=== PATIENT | female | born 1960 | race Caucasian/White ===

== ENCOUNTER → 2016-05-28 | Outpatient (CLI) | payer BC ==
--- NOTE | 2016-06-01 12:49 | MM ---
Reason for exam: screening (asymptomatic). Last mammogram was performed 1 year ago. History: Patient is postmenopausal and had first child at age 32. Family history of breast cancer in aunt at age 60. 2 benign cyst aspirations of the left breast, 2004. Physical Findings: A clinical breast exam by your physician is recommended on an annual basis and results should be correlated with mammographic findings. MG 3D Screening Mammo W/Cad Bilateral CC and MLO view(s) were taken. Prior study comparison: May 17, 2015, left breast MG 3d work up w/cad LT. May 03, 2015, bilateral MG screening mammo w CAD. The breast tissue is heterogeneously dense. This may lower the sensitivity of mammography. No significant changes when compared with prior studies. ASSESSMENT: Benign, BI-RAD 2 RECOMMENDATION: Routine screening mammogram of both breasts in 1 year.
== END | disposition home or self-care (01) ==
LOC: RADMAMWWP 16:37
PROVIDERS: ATTEND Obstetrics & Gynecology
DX: Z12.31 Encounter for screening mammogram for malignant neoplasm of breast (principal)
CPT/HCPCS: 77063; G0202

== ENCOUNTER → 2017-01-08 | Outpatient (CLI) | payer OTHER ==
[2017-01-08 11:00] LABS: Basophils % (A) 1 %; CH 28.7; CHCM 31.6; Eosinophils % (A) 1 %; HCT 44.6 % (34.0-46.0); HDW 2.16; HGB 13.9 gm/dL (11.4-16.0); Luc # (Auto) 0.07; Luc % (Auto) 2; Lymphocytes # (A) 1.2 k/uL (1.0-4.8); Lymphocytes % (A) 26 %; MCH 28.4 pg (25.0-35.0); MCHC 31.1 g/dL (31.0-37.0); MCV 91.1 fL (80.0-100.0); Mean Platelet Volume 7.9; Monocytes # (A) 0.2 k/uL (0-1.0); Monocytes % (A) 5 %; Neutrophils % (A) 66 %; RBC 4.89 m/uL (3.80-5.40); RDW 12.7 % (11.5-15.5); WBC 4.6 k/uL (3.8-10.6); WBC (Perox) 4.45
[2017-01-08 11:07] LABS: ALT 41 U/L (9-52); AST 26 U/L (14-36); Alkaline Phosphatase 59 U/L (38-126); Anion Gap 6 mmol/L; Blood Urea Nitrogen 15 mg/dL (7-17); Calcium 9.9 mg/dL (8.4-10.2); Carbon Dioxide 28 mmol/L (22-30); Chloride 106 mmol/L (98-107); Cholesterol 205 mg/dL (<200); Glucose 92 mg/dL (74-99); HDL Cholesterol 70 mg/dL (40-60); Non-African American GFR(MDRD) >60 (>60 ml/min/1.73 sqM); Potassium 4.8 mmol/L (3.5-5.1); Sodium 140 mmol/L (137-145); Total Bilirubin 0.5 mg/dL (0.2-1.3); Total Protein 7.4 g/dL (6.3-8.2)
[2017-01-12 14:05] LABS: Almond IgE <0.35 kU/L (<0.35); Almond IgE Class CLASS 0
[2017-01-12 14:06] LABS: Beef IgE <0.35 kU/L (<0.35); Beef IgE Class CLASS 0; Pork IgE Class CLASS 0
[2017-01-12 14:07] LABS: Gluten IgE Class CLASS 0; Yeast Bakers/Brew IgE <0.35 kU/L (<0.35); Yeast Bakers/Brew IgE Class CLASS 0
[2017-01-12 14:08] LABS: Chicken IgE Class CLASS 0
[2017-01-12 14:09] LABS: Cow's Milk IgE Class CLASS 0; Egg White IgE <0.35 kU/L (<0.35); Latex IgE Class CLASS 0; Peanut IgE <0.35 kU/L (<0.35); Potato IgE <0.35 kU/L (<0.35); Potato IgE Class CLASS 0; Soybean IgE <0.35 kU/L (<0.35)
[2017-01-12 14:10] LABS: Avocado Class CLASS 0; Banana IgE Class CLASS 0; Coffee IgE <0.35 kU/L (<0.35); Coffee IgE Class CLASS 0; Hazelnut IgE <0.35 kU/L (<0.35); Hazelnut IgE Class CLASS 0; Kiwi IgE <0.35 kU/L (<0.35); Kiwi IgE Class CLASS 0
[2017-01-14 07:23] LABS: Mis test requested (Blood) Whitefish IgE
== END | disposition home or self-care (01) ==
LOC: LABWHC1 09:57
PROVIDERS: ATTEND Otolaryngology
DX: Z00.00 Encounter for general adult medical examination without abnormal findings (principal); L50.0 Allergic urticaria; R94.7 Abnormal results of other endocrine function studies; Z13.220 Encounter for screening for lipoid disorders
CPT/HCPCS: 36415; 80053; 80061; 84439; 84443; 85025; 86003

== ENCOUNTER → 2017-08-17 | Outpatient (CLI) | payer OTHER ==
[2017-08-17 14:59] VITALS: BP 135/75; PULSE 65; RESP 18; TEMP 98.6; BMI 21.1
--- NOTE | 2017-08-17 15:44 | P.HPOB ---
History of Present Illness H&P Date: 08/17/17 Chief Complaint: The patient is here for her routine gynecologic exam and mammogram. This is a 56-year-old with an LMP of 2011. The patient is without gynecologic complaints. Hot flashes have resolved. She denies any postmenopausal bleeding. Review of Systems Weight has been stable. She denies respiratory or cardiac problems. G.I.: she has been having frequent heartburn. Dr. Ash had recommended omeprazole as directed and she is taking this PRN. She continues to have frequent heartburn and can sometimes be aggravated by something as little as a glass of water. Past Medical History Past Medical History: Mitral Valve Prolapse (MVP) Additional Past Medical History / Comment(s): hx migraines, sm hiatal hernia, osteopenia. 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 She does have a history of small uterine fibroids. History of Any Multi-Drug Resistant Organisms: None Reported Past Surgical History: Section (x2) Additional Past Surgical History / Comment(s): Colonoscopy at age [age] and 2016. Past Anesthesia/Blood Transfusion Reactions: Motion Sickness Past Psychological History: No Psychological Hx Reported Smoking Status: Never smoker Past Alcohol Use History: None Reported Past Drug Use History: None Reported Additional History: She has been since 1980 and works at [employer]. - Past Family History Mother Family Medical History: Cancer (Multiple myeloma) Additional Family Medical History / Comment(s): Maternal aunt had breast cancer. Father Family Medical History: Myocardial Infarction ([place]) Medications and Allergies Home Medications Medication Instructions Recorded Confirmed Type Ibuprofen [Advil] 200 mg PO DIRECTED PRN 08/07/15 08/17/17 History Multivitamins, Thera [Multivitamin] 1 tab PO DAILY 08/07/15 08/17/17 History Omeprazole [PriLOSEC] 20 mg PO AC-BID 08/17/17 08/17/17 History Allergies Allergy/AdvReac Type Severity Reaction Status Date / Time No Known Allergies Allergy Verified 08/07/15 08:55 Exam - Vital Signs Vital signs: Vital Signs Temp Pulse Resp BP 08/17/17 14:53 98.6 F 65 18 135/75 Intake and Output 08/17/17 08/17/17 08/17/17 06:59 14:59 22:59 Other: Weight 61.235 kg Height 5'7", BMI 21.1. This is a well-developed well-nourished white female who is alert and oriented times 3 in no acute distress. HEENT: Within normal limits. NECK: Supple without mass or thyromegaly. CHEST AND LUNGS: Clear to auscultation. HEART: Regular rate and rhythm. BREASTS: Are without mass or discharge. AXILLARY EXAM: Negative for adenopathy. BACK: Negative for CVA tenderness. ABDOMEN: Soft, nontender, without palpable masses. PELVIC EXAM: Normal external genitalia with mild atrophy. Cervix and vagina appear normal with mild atrophy. There is no unusual discharge. There is no evidence of prolapse. The uterus is midposition, nongravid size and nontender. There are no palpable adnexal masses or tenderness. RECTAL EXAM: rectovaginal exam is negative for mass or tenderness and is negative for occult blood. EXTREMITIES: Nontender. IMPRESSION: 1. 56-year-old menopausal female with normal gynecologic exam. 2. History of osteopenia. 3. Frequent heartburn PLAN: 1. Pap smear was deferred since she had a normal one less than 2 years ago. 2. Self breast awareness was discussed. 3. Screening mammogram will be done today. 4. I've recommended that she use omeprazole as directed daily for 2 weeks instead of PRN. She also should avoid the types of foods that seem to make her heartburn worse. If, after 2 weeks she continues to have heartburn, I recommended that she follow up with her G.I. doctor, Dr. Gil for possible upper endoscopy. 5. osteoporosis prevention was discussed. 6. She will return in one year.
--- NOTE | 2017-08-18 14:53 | BD ---
EXAMINATION TYPE: Axial Bone Density DATE OF EXAM: 08/17/2017 COMPARISON: NONE CLINICAL HISTORY: Height: 5 FT 7 IN Weight: 135 FRAX RISK QUESTIONS: RISK FACTORS HISTORY OF: Family History of Osteoporosis: YES Active: YES Postmenopausal woman: AGE 50 MEDICATIONS: Additional Medications: OMEPRAZOLE NEEDED Additional History: EXAM MEASUREMENTS: Bone mineral densitometry was performed using the Linebacker System. Bone mineral density as measured about the Lumbar spine is: ----- L1-L4(G/cm2): 1.024 T Score Values are as follows: ----- L2: -1.7 ----- L3: -1.1 ----- L4: -0.6 ----- L1-L4: -1.3 Bone mineral density has: DECREASED -0.4 % since study of: 2015 Bone mineral density about the R hip (g/cm2): 0.765 Bone mineral density about the L hip (g/cm2): 0.774 T Score values are as follows: -----R Neck: -2.0 -----L Neck: -1.9 -----R Total: -1.0 -----L Total: -1.3 Bone mineral density has: DECREASED -2.5 % since study of: 2015 IMPRESSION: Osteopenia (T Score between -2.5 and -1). There is slightly increased risk of fracture and the patient may be considered for treatment. Re-Screen 2-5 years. NOTE: T-SCORE=SD OF THE YOUNG ADULT MEAN.
--- NOTE | 2017-08-19 10:52 | MM ---
Reason for exam: screening (asymptomatic). Last mammogram was performed 1 year and 3 months ago. History: Patient is postmenopausal and had first child at age 32. Family history of breast cancer in aunt at age 60. 2 benign cyst aspirations of the left breast, 2004. Physical Findings: A clinical breast exam by your physician is recommended on an annual basis and results should be correlated with mammographic findings. MG 3D Screening Mammo W/Cad Bilateral CC and MLO view(s) were taken. Prior study comparison: May 28, 2016, bilateral MG 3d screening mammo w/cad. May 17, 2015, left breast MG 3d work up w/cad LT. The breast tissue is heterogeneously dense. This may lower the sensitivity of mammography. No significant changes when compared with prior studies. ASSESSMENT: Negative, BI-RAD 1 RECOMMENDATION: Routine screening mammogram of both breasts in 1 year.
== END | disposition home or self-care (01) ==
LOC: WWCWWP 14:45
PROVIDERS: ATTEND Obstetrics & Gynecology
DX: Z12.31 Encounter for screening mammogram for malignant neoplasm of breast (principal); M85.80 Other specified disorders of bone density and structure, unspecified site; Z78.0 Asymptomatic menopausal state
CPT/HCPCS: 77063; 77067; 77080

== ENCOUNTER → 2018-11-15 | Outpatient (CLI) | payer BC ==
[2018-11-15 15:50] VITALS: BP 130/76; PULSE 59; RESP 16; TEMP 98.5; BMI 20.9
--- NOTE | 2018-11-15 16:57 | P.HPOB ---
History of Present Illness H&P Date: 11/15/18 Chief Complaint: The patient is here for her routine gynecologic exam and ma mmogram. This is a 58-year-old with an LMP of 2011. The patient states he has had slight breast tenderness on both sides with the tenderness being slightly greater on the right side. She states she has been drinking more coffee than in the past and now is up to about 4 to 6 cups per day. She is otherwise without complaints and denies any postmenopausal bleeding. Review of Systems The patient's weight has been stable over the last year. She denies respiratory, cardiac, or G.I. problems. Past Medical History Past Medical History: Mitral Valve Prolapse (MVP) Additional Past Medical History / Comment(s): hx migraines, sm hiatal hernia, osteopenia. 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 She does have a history of small uterine fibroids. History of Any Multi-Drug Resistant Organisms: None Reported Past Surgical History: Section Additional Past Surgical History / Comment(s): x2. Colonoscopy at age [age] and 2016. Past Anesthesia/Blood Transfusion Reactions: Motion Sickness Past Psychological History: No Psychological Hx Reported Smoking Status: Never smoker Past Alcohol Use History: None Reported Past Drug Use History: None Reported Additional History: She has been since 1980 and works at [employer] at [employer]. She is planning to retire at age 60. - Past Family History Mother Family Medical History: Cancer Additional Family Medical History / Comment(s): Multiple myeloma. Maternal aunt had breast cancer. Father Family Medical History: Myocardial Infarction ([place]) Medications and Allergies Home Medications Medication Instructions Recorded Confirmed Type Ibuprofen [Advil] 200 mg PO DIRECTED PRN 08/07/15 11/15/18 History Multivitamins, Thera [Multivitamin] 1 tab PO DAILY 08/07/15 11/15/18 History Omeprazole [PriLOSEC] 20 mg PO DIRECTED PRN 08/17/17 11/15/18 History Calcium Carb/Vitamin D3/Vit K1 1 each PO DAILY 11/15/18 11/15/18 History [Citracal Soft Chew] Fish Oil/Dha/Epa [Fish Oil 1,200 1 each PO DAILY 11/15/18 11/15/18 History mg Fish Oil] Allergies Allergy/AdvReac Type Severity Reaction Status Date / Time No Known Allergies Allergy Verified 11/15/18 15:35 Exam Vital Signs Temp Pulse Resp BP Pulse Ox 11/15/18 15:31 98.5 F 59 L 16 130/76 94 L Height 5'7", weight 134 pounds, BMI 21.0. This is a well-developed well-nourished white female who is alert and oriented times 3 in no acute distress. HEENT: Within normal limits. NECK: Supple without mass or thyromegaly. CHEST AND LUNGS: Clear to auscultation. HEART: Regular rate and rhythm. BREASTS: Are without mass or discharge. AXILLARY EXAM: Negative for adenopathy. BACK: Negative for CVA tenderness. ABDOMEN: Soft, nontender, without palpable masses. PELVIC EXAM: Normal external genitalia with mild atrophy. Cervix and vagina appear normal with mild atrophy. There is no unusual discharge. There is no evidence of prolapse. The uterus is midposition, nongravid size and nontender. There are no palpable adnexal masses or tenderness. RECTAL EXAM: rectovaginal exam is negative for mass or tenderness and is negative for occult blood. EXTREMITIES: Nontender. IMPRESSION: 1. 58-year-old menopausal female with normal gynecologic exam. 2. History of osteopenia. 3. Recent breast tenderness without any significant physical findings at this time. PLAN: 1. Pap smear was performed. 2. Self breast awareness was discussed with the patient. 3. Screening mammogram was done today. 4. Osteoporosis prevention was discussed. I have stressed the importance of adequate calcium, vitamin D and regular exercise. Recommended amounts of david cium and vitamin D were also discussed. We will plan on repeating the bone density test in one year. 5. I've recommended that she tried to gradually cut down on caffeine intake to see if this helps with her breast tenderness. 6. She was advised to return in one year for her annual well woman exam.
--- NOTE | 2018-11-16 12:17 | MM ---
Reason for exam: screening (asymptomatic). Last mammogram was performed 1 year and 3 months ago. History: Patient is postmenopausal and had first child at age 32. Family history of breast cancer in aunt at age 60. 2 benign cyst aspirations of the left breast, 2004. Physical Findings: A clinical breast exam by your physician is recommended on an annual basis and results should be correlated with mammographic findings. MG 3D Screening Mammo W/Cad Bilateral CC and MLO view(s) were taken. Prior study comparison: August 17, 2017, bilateral MG 3d screening mammo w/cad. May 28, 2016, bilateral MG 3d screening mammo w/cad. The breast tissue is heterogeneously dense. This may lower the sensitivity of mammography. No significant changes when compared with prior studies. ASSESSMENT: Benign, BI-RAD 2 RECOMMENDATION: Routine screening mammogram of both breasts in 1 year.
== END | disposition home or self-care (01) ==
LOC: WWCWWP 15:24
PROVIDERS: ATTEND Obstetrics & Gynecology
DX: Z12.31 Encounter for screening mammogram for malignant neoplasm of breast (principal)
CPT/HCPCS: 77063; 77067

== ENCOUNTER → 2020-02-13 | Outpatient (CLI) | payer BC ==
[2020-02-13 14:44] VITALS: BP 115/74; PULSE 68; RESP 18; TEMP 97.9
--- NOTE | 2020-02-13 16:34 | P.HPOB ---
History of Present Illness H&P Date: 02/13/20 Chief Complaint: The patient is here for her routine gynecologic exam and ma mmogram. This is a 59-year-old 012 with an LMP of 2011. The patient is without gynecologic complaints. Review of Systems The patient's weight has been stable over the last year. She denies respiratory, cardiac, or G.I. problems. Past Medical History Past Medical History: Mitral Valve Prolapse (MVP) Additional Past Medical History / Comment(s): hx migraines, sm hiatal hernia, osteopenia. 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 She does have a history of small uterine fibroids. History of Any Multi-Drug Resistant Organisms: None Reported Past Surgical History: Section Additional Past Surgical History / Comment(s): x2. Colonoscopy at age [age] and 2016. Past Anesthesia/Blood Transfusion Reactions: Motion Sickness Past Psychological History: No Psychological Hx Reported Smoking Status: Never smoker Past Alcohol Use History: None Reported Past Drug Use History: None Reported Additional History: She has been since 1980 and works at [employer]. - Past Family History Mother Family Medical History: Cancer Additional Family Medical History / Comment(s): Multiple myeloma. Maternal aunt had breast cancer. Father Family Medical History: Myocardial Infarction ([place]) Medications and Allergies Home Medications Medication Instructions Recorded Confirmed Type Ibuprofen [Advil] 200 mg PO DIRECTED PRN 08/07/15 02/13/20 History Multivitamins, Thera [Multivitamin] 1 tab PO DAILY 08/07/15 02/13/20 History Fish Oil/Dha/Epa [Fish Oil 1,200 1 each PO DAILY 11/15/18 02/13/20 History mg Fish Oil] Allergies Allergy/AdvReac Type Severity Reaction Status Date / Time No Known Allergies Allergy Verified 11/15/18 15:35 Exam Vital Signs Temp Pulse Resp BP Pulse Ox 02/13/20 14:37 97.9 F 68 18 115/74 98 Intake and Output 02/13/20 02/13/20 02/13/20 06:59 14:59 22:59 Other: Weight 61.689 kg Height 5 feet 6-1/2 inches, weight 136 pounds, BMI 21.6. This is a well-developed well-nourished white female who is alert and oriented times 3 in no acute distress. HEENT: Within normal limits. NECK: Supple without mass or thyromegaly. CHEST AND LUNGS: Clear to auscultation. HEART: Regular rate and rhythm. BREASTS: Are without mass or discharge. AXILLARY EXAM: Negative for adenopathy. BACK: Negative for CVA tenderness. ABDOMEN: Soft, nontender, without palpable masses. PELVIC EXAM: Normal external genitalia with mild atrophy. Cervix and vagina appear normal with mild atrophy. There is no unusual discharge. There is no evidence of prolapse. The uterus is midposition, nongravid size and nontender. There are no palpable adnexal masses or tenderness. RECTAL EXAM: Rectovaginal exam is negative for mass or tenderness and is negative for occult blood. EXTREMITIES: Nontender. IMPRESSION: 1. 59-year-old menopausal female with normal gynecologic exam. 2. History of osteopenia. PLAN: 1. Pap smear was deferred since she had a normal one on 11/15/2018. 2. Self breast awareness was discussed with the patient. 3. Screening mammogram will be done today. 4. Osteoporosis prevention was discussed. I have stressed the importance of adequate calcium, vitamin D and regular exercise. Recommended amounts of calcium and vitamin D were also discussed. I have recommended doing another bone density test. The order slip was given to the patient for this. 5. She was advised to return in one year for her annual well woman exam.
--- NOTE | 2020-02-14 11:52 | MM ---
Reason for exam: screening (asymptomatic). Last mammogram was performed 1 year and 3 months ago. History: Patient is postmenopausal and had first child at age 32. Family history of breast cancer in aunt at age 60. 2 benign cyst aspirations of the left breast, 2004. Physical Findings: A clinical breast exam by your physician is recommended on an annual basis and results should be correlated with mammographic findings. MG 3D Screening Mammo W/Cad Bilateral CC and MLO view(s) were taken. Prior study comparison: November 15, 2018, bilateral MG 3d screening mammo w/cad. August 17, 2017, bilateral MG 3d screening mammo w/cad. The breast tissue is heterogeneously dense. This may lower the sensitivity of mammography. There is no discrete abnormality. No significant changes when compared with prior studies. ASSESSMENT: Negative, BI-RAD 1 RECOMMENDATION: Routine screening mammogram of both breasts in 1 year.
== END | disposition home or self-care (01) ==
LOC: WWCWWP 14:13
PROVIDERS: ATTEND Obstetrics & Gynecology
DX: Z12.31 Encounter for screening mammogram for malignant neoplasm of breast (principal)
CPT/HCPCS: 77063; 77067

== ENCOUNTER → 2021-02-19 | Outpatient (CLI) | payer BC ==
[2021-02-19 09:47] VITALS: BP 122/64; PULSE 68; RESP 16; TEMP 98.1
--- NOTE | 2021-02-19 10:48 | P.HPOB ---
History of Present Illness H&P Date: 02/19/21 Chief Complaint: The patient is here for her routine gynecologic exam. This is a 60-year-old 012 with an LMP of 2011. The patient is without gynecologic complaints and denies any postmenopausal bleeding. Review of Systems The patient has lost 5 pounds over the last year. She denies respiratory, cardiac, or G.I. problems. She has noticed a oral cold sore which she gets infrequently. She is requesting a prescription for Denavir cream. Past Medical History Past Medical History: Mitral Valve Prolapse (MVP) Additional Past Medical History / Comment(s): hx migraines, sm hiatal hernia, osteopenia. 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 She does have a history of small uterine fibroids. History of Any Multi-Drug Resistant Organisms: None Reported Past Surgical History: Section Additional Past Surgical History / Comment(s): x2. Colonoscopy at age [age] and 2016. Past Anesthesia/Blood Transfusion Reactions: Motion Sickness Past Psychological History: No Psychological Hx Reported Smoking Status: Never smoker Past Alcohol Use History: None Reported Past Drug Use History: None Reported Additional History: She has been since 1980 and works at [employer]. - Past Family History Mother Family Medical History: Cancer Additional Family Medical History / Comment(s): Multiple myeloma. Maternal aunt had breast cancer. Father Family Medical History: Myocardial Infarction ([place]) Medications and Allergies Home Medications Medication Instructions Recorded Confirmed Type Ibuprofen [Advil] 200 mg PO DIRECTED PRN 08/07/15 02/19/21 History Multivitamins, Thera [Multivitamin] 1 tab PO DAILY 08/07/15 02/19/21 History Fish Oil/Dha/Epa [Fish Oil 1,200 1 each PO DAILY 11/15/18 02/19/21 History mg Fish Oil] Cholecalciferol [Vitamin D3 (25 25 mcg PO BID 02/19/21 02/19/21 History Mcg = 1000 Iu)] Zinc 200 mg PO DAILY 02/19/21 02/19/21 History Allergies Allergy/AdvReac Type Severity Reaction Status Date / Time No Known Allergies Allergy Verified 02/19/21 09:39 Exam Vital Signs Temp Pulse Resp BP Pulse Ox 02/19/21 09:41 98.1 F 68 16 122/64 100 Intake and Output 02/18/21 02/19/21 02/19/21 22:59 06:59 14:59 Other: Weight 59.421 kg Height 5 feet 7 inches, weight 131 pounds, BMI 20.5. This is a well-developed well-nourished white female who is alert and oriented times 3 in no acute distress. HEENT: Within normal limits. NECK: Supple without mass or thyromegaly. CHEST AND LUNGS: Clear to auscultation. HEART: Regular rate and rhythm. BREASTS: Are without mass or discharge. AXILLARY EXAM: Negative for adenopathy. BACK: Negative for CVA tenderness. ABDOMEN: Soft, nontender, without palpable masses. PELVIC EXAM: Normal external genitalia with mild to moderate atrophy. Cervix and vagina appear normal with mild atrophy. There is no unusual discharge. There is no evidence of prolapse. The uterus is midposition, nongravid size and nontender. There are no palpable adnexal masses or tenderness. RECTAL EXAM: Rectovaginal exam is negative for mass or tenderness and is negative for occult blood. EXTREMITIES: Nontender. IMPRESSION: 1. 60-year-old menopausal female with normal gynecologic exam. 2. History of osteopenia. 3. Oral cold sore, infrequent symptoms. PLAN: 1. Pap smear was performed. 2. Self breast awareness was discussed with the patient. We have also discussed symptoms associated with inflammatory breast cancer. 3. Screening mammogram will be done on 02/24/2021 and the order slip was given to the patient for this. 4. Osteoporosis prevention was discussed. I have stressed the importance of adequate calcium, vitamin D and regular exercise. Recommended amounts of calcium and vitamin D were also discussed. Bone density test was recommended and the order slip was given to the patient for this. 5. She has completed her Covid vaccination series. 6. Denavir for the oral cold sore as directed. The electronic prescription will be sent to [facility]. 7. She was advised to return in one year for her annual well woman exam.
== END | disposition home or self-care (01) ==
LOC: WWCWWP 09:32
PROVIDERS: ATTEND Obstetrics & Gynecology
DX: Z53.9 Procedure and treatment not carried out, unspecified reason (principal)

== ENCOUNTER → 2021-02-24 | Outpatient (CLI) | payer BC ==
--- NOTE | 2021-02-24 13:34 | BD ---
EXAMINATION TYPE: Axial Bone Density DATE OF EXAM: 02/24/2021 COMPARISON: NONE CLINICAL HISTORY: Height: 5 FT 6 3/4 IN Weight: 131 FRAX RISK QUESTIONS: Alcohol (3 or more units per day): NO Family History (Parent hip fracture): NO Glucocorticoids (More than 3mos): NO (Ex: prednisone, prednisolone, methylprednisolone, dexamethasone, and hydrocortisone). History of Fracture in Adulthood: NO Secondary Osteoporosis: 1. Type 1 Diabetes: NO 2. Hyperthyroidism: NO 3. Menopause before 45: NO 4. Malnutrition: NO 5. Chronic liver disease: NO Rheumatoid Arthritis: NO Current Tobacco Use: NO RISK FACTORS HISTORY OF: Surgery to Spine/Hip(right/left)/Wrist (right/left): NO Family History of Osteoporosis: YES Active: YES Diet low in dairy products/other sources of calcium: NO Postmenopausal woman: AGE 50 Take estrogen and/or progesterone medications: NO Lost more than 2 inches in height since high school: NO Frequent falls: NO Poor Health: GOOD Hyperparathyroidism: NO Adrenal Insufficiency: NO MEDICATIONS: Additional Medications: NONE Additional History: EXAM MEASUREMENTS: Bone mineral densitometry was performed using the Nuforce System. Bone mineral density as measured about the Lumbar spine is: ----- L1-L4(G/cm2): 0.985 T Score Values are as follows: ----- L2: -2.3 ----- L3: -1.2 ----- L4: -0.7 ----- L1-L4: -1.6 Bone mineral density has: DECREASED -3.3 % since study of: 2017 Bone mineral density about the R hip (g/cm2): 0.783 Bone mineral density about the L hip (g/cm2): 0.731 T Score values are as follows: -----R Neck: -1.8 -----L Neck: -2.2 -----R Total: -1.1 -----L Total: -1.5 Bone mineral density has: DECREASED -2.7 % since study of: 2018 IMPRESSION: Osteopenia (T Score between -2.5 and -1). There is slightly increased risk of fracture and the patient may be considered for treatment. Re-Screen 2-5 years. NOTE: T-SCORE=SD OF THE YOUNG ADULT MEAN.
--- NOTE | 2021-02-25 11:39 | P.PN ---
Progress Note - Text Progress Note Date: 02/25/21 OUTPATIENT FOLLOW-UP NOTE TEST(S)/RESULTS: Bone density test done on 02/24/2021 showed osteopenia with slight decrease compared to her 2018 bone density test. METHOD OF NOTIFICATION: The patient was notified by phone. PATIENT COMMENTS: The patient has started a weight training exercise program. DIAGNOSIS: Osteopenia. DISCUSSION: I have stressed the importance of getting adequate calcium, vitamin D, and regular exercise. We will plan on repeating bone density test in 2-3 years. PLAN: Screening mammogram was also done on 02/24/2021 with results pending. She was told to expect results in the form of a letter. She was advised to return in one year for her annual well woman exam.
--- NOTE | 2021-02-25 14:30 | MM ---
Reason for exam: screening (asymptomatic). Last mammogram was performed 1 year ago. History: Patient is postmenopausal and had first child at age 32. Family history of breast cancer in aunt at age 60. 2 benign cyst aspirations of the left breast, 2005. Physical Findings: A clinical breast exam by your physician is recommended on an annual basis and results should be correlated with mammographic findings. MG 3D Screening Mammo W/Cad Bilateral CC and MLO view(s) were taken. Prior study comparison: February 13, 2020, bilateral MG 3d screening mammo w/cad. November 15, 2018, bilateral MG 3d screening mammo w/cad. The breast tissue is heterogeneously dense. This may lower the sensitivity of mammography. Gradually enlarging 7mm oval isodense nodule 8-9 o'clock posterior right breast, 5-7cm from nipple. Possible distortion lateral right breast but without correlate on the MLO view. These results were verbally communicated with the patient and result sheet given to the patient on 02/24/21. ASSESSMENT: Incomplete: need additional imaging evaluation, BI-RAD 0 RECOMMENDATION: Special view mammogram of the right breast. (3D) Ultrasound of the left breast. [facility] will attempt to contact patient to return for supplemental views and ultrasound.
== END ==
LOC: RADMAMWWP 07:08
PROVIDERS: ATTEND Obstetrics & Gynecology
DX: Z12.31 Encounter for screening mammogram for malignant neoplasm of breast (principal); Z78.0 Asymptomatic menopausal state
CPT/HCPCS: 77063; 77067; 77080

== ENCOUNTER → 2021-03-21 | Outpatient (CLI) | payer BC ==
--- NOTE | 2021-03-21 11:00 | MM ---
Reason for exam: additional evaluation requested from abnormal screening. Last mammogram was performed 1 month ago. History: Patient is postmenopausal and had first child at age 32. Family history of breast cancer in aunt at age 60. 2 benign cyst aspirations of the left breast, 2004. Physical Findings: Nurse did not find any significant physical abnormalities on exam. MG 3D Work Up W/Cad RT Spot compression CC and spot compression LM view(s) were taken of the right breast. Prior study comparison: February 24, 2021, bilateral MG 3d screening mammo w/cad. February 13, 2020, bilateral MG 3d screening mammo w/cad. The breast tissue is heterogeneously dense. This may lower the sensitivity of mammography. There is no discrete abnormality persists on additional views on right breast. These results were verbally communicated with the patient and result sheet given to the patient on 03/21/21. ASSESSMENT: Negative, BI-RAD 1 RECOMMENDATION: Return to routine screening mammogram schedule for both breasts.
--- NOTE | 2021-03-21 11:02 | USB ---
Reason for exam: additional evaluation requested from abnormal screening. History: Patient is postmenopausal and had first child at age 32. Family history of breast cancer in aunt at age 60. 2 benign cyst aspirations of the left breast, 2004. US Breast Workup Limited LT Left limited breast ultrasound including focal area of concern, retroareolar and axilla demonstrates a 0.5 x 0.5 x 0.2cm oval, benign lymph node at 8 o'clock and a 0.6 x 0.5 x 0.3cm oval, cystic lesion at 8 o'clock, increased through transmission, avascular, questionable ductal lesion, favor benign cyst. These results were verbally communicated with the patient and result sheet given to the patient on 03/21/21. ASSESSMENT: Probably benign, BI-RAD 3 RECOMMENDATION: Ultrasound of the left breast in 6 months.
== END | disposition home or self-care (01) ==
LOC: RADMAMWWP 07:09
PROVIDERS: ATTEND Obstetrics & Gynecology
DX: R92.8 Other abnormal and inconclusive findings on diagnostic imaging of breast (principal)
CPT/HCPCS: 77061; 77065

== ENCOUNTER 2021-05-02 12:34 | Day surgery (SDC) | payer BC ==
[2021-05-01 12:28] VITALS: BMI 20.3
[2021-05-02] MEDS ORDERED: LACTATED RINGERS 1,000 ML IV SCH (12:43)
[2021-05-02] MEDS ORDERED: LIDOCAINE 1% (10MG/ML) FOR IV START INTRADERMA ONE (13:00)
[2021-05-02 13:07] VITALS: RESP 16; TEMP 97.1
[2021-05-02] MEDS ORDERED: LIDOCAINE 1% INJ 10MG/ML (20 ML MDV) ONE (13:07)
[2021-05-02] MEDS ORDERED: PROPOFOL 10 MG/ML 20 ML VIAL IV ONE (13:07)
--- NOTE | 2021-05-02 13:29 | P.PCN ---
Date of Procedure: 05/02/21 Procedure(s) Performed: BRIEF HISTORY: Patient is a 60-year-old pleasant white female scheduled for an elective colonoscopy as a part of evaluation of prior history of colon polyps. Last colonoscopy was 5 years ago. PROCEDURE PERFORMED: Colonoscopy. PREOPERATIVE DIAGNOSIS: History of colon polyps. IV sedation per Anesthesia. PROCEDURE: After informed consent was obtained, the patient, was brought into the endoscopy unit. IV sedation was administered by Anesthesia under continuous monitoring. Digital rectal examination was normal. Initially the Olympus CF-160 flexible video colonoscope was then inserted in the rectum, gradually advanced into the cecum without any difficulty. Careful examination was performed as the scope was gradually being withdrawn. Ileocecal valve and the appendiceal orifice were visualized and appeared normal. Prep was excellent. Mucosa of the cecum, ascending colon, transverse colon, descending colon, sigmoid colon, and rectum appeared normal. Retroflexion was performed in the rectum and small internal hemorrhoids were seen. The patient tolerated the procedure well. IMPRESSION: Normal-appearing colon from rectum to cecum with no evidence of colorectal neoplasia . RECOMMENDATIONS: Findings of this examination were discussed with the patient as well as a family. She was advised to have a repeat colonoscopy in 5 years from now because of the prior history of colon polyps..
[2021-05-02 14:12] VITALS: BP 112/63; PULSE 61
== END 2021-05-02 14:21 | disposition home or self-care (01) ==
LOC: ORWHC2ENDO 12:34
PROVIDERS: ATTEND Internal Medicine Gastroenterology
DX: Z12.11 Encounter for screening for malignant neoplasm of colon (principal); Z86.010 Personal history of colon polyps; K64.8 Other hemorrhoids; I34.1 Nonrheumatic mitral (valve) prolapse; K44.9 Diaphragmatic hernia without obstruction or gangrene; Z98.891 History of uterine scar from previous surgery
CPT/HCPCS: J2001; J2704; G0105; 45378

== ENCOUNTER → 2021-08-29 | Outpatient (CLI) | payer BC ==
--- NOTE | 2021-08-29 10:18 | USB ---
Reason for Exam: Follow-up at short interval from prior study. Patient History: Menarche at age 10. First Full-Term at age 32. Late child-bearing (after 30). Postmenopausal. 2004, Benign Cyst Aspiration on the left side. 2004, Benign Cyst Aspiration on the left side. Maternal aunt had breast cancer, age 60. Risk Values: Mandy 5 year model risk: 2.1%. NCI Lifetime model risk: 9.4%. Prior Study Comparison: 02/13/2020 Bilateral Screening Mammogram, [facility]. 02/24/2021 Bilateral Screening Mammogram, [facility]. 03/21/2021 Right Diagnostic Mammogram, [facility]. Findings: There is a persistent hypoechoic area with good through transmission and posterior wall enhancement at the 8:00 position 4 cm from the nipple. This measures 0.7 x 0.3 x 0.5 cm. This is stable from comparison. The previous suspected lymph node is not evident on the current examination. Overall Assessment: Benign, BI-RAD 2 Management: Screening Mammogram of both breasts in 6 months. A clinical breast exam by your physician is recommended on an annual basis and results should be correlated with mammographic findings. Electronically signed and approved by: Dariel Soares D.O. Radiologis
== END | disposition home or self-care (01) ==
LOC: RADUSWWP 09:45
PROVIDERS: ATTEND Obstetrics & Gynecology
DX: R92.8 Other abnormal and inconclusive findings on diagnostic imaging of breast (principal)

== ENCOUNTER → 2022-03-03 | Outpatient (CLI) | payer BC ==
[2022-03-03 14:15] VITALS: BP 118/70; PULSE 72; RESP 17; TEMP 98.4
--- NOTE | 2022-03-03 15:03 | P.HPOB ---
History of Present Illness H&P Date: 03/03/22 Chief Complaint: The patient is here for her routine gynecologic exam and ma mmogram. This is a 61-year-old 012 with an LMP of 2011. The patient is without gynecologic complaints and denies any postmenopausal bleeding. Review of Systems The patient has gained 4 pounds over the last year. She denies respiratory, cardiac, or G.I. problems. Past Medical History Past Medical History: Mitral Valve Prolapse (MVP) Additional Past Medical History / Comment(s): hx migraines, sm hiatal hernia, osteopenia. 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 History of small fibroids. History of Any Multi-Drug Resistant Organisms: None Reported Past Surgical History: Section Additional Past Surgical History / Comment(s): x2. Colonoscopy at age [age](next after 5yr). Past Anesthesia/Blood Transfusion Reactions: Motion Sickness Past Psychological History: No Psychological Hx Reported Smoking Status: Never smoker Past Alcohol Use History: None Reported Past Drug Use History: None Reported Additional History: She is membrane made since 1980. She works at the [employer] for [employer]. - Past Family History Mother Family Medical History: Cancer Additional Family Medical History / Comment(s): Multiple myeloma. Maternal aunt had breast cancer. Father Family Medical History: Myocardial Infarction ([place]) Medications and Allergies Home Medications Medication Instructions Recorded Confirmed Type Cholecalciferol [Vitamin D3 (25 25 mcg PO BID 03/03/22 03/03/22 History Mcg = 1000 Iu)] Doxycycline [Vibramycin] 10 mg PO DAILY 03/03/22 03/03/22 History Zinc Gluconate [Zinc] 50 mg PO DAILY 03/03/22 03/03/22 History Allergies Allergy/AdvReac Type Severity Reaction Status Date / Time No Known Allergies Allergy Verified 03/03/22 14:10 Exam Vital Signs Temp Pulse Resp BP Pulse Ox 03/03/22 14:12 98.4 F 72 17 118/70 98 Intake and Output 03/02/22 03/03/22 03/03/22 22:59 06:59 14:59 Other: Weight 61.235 kg Height 5 feet 7 inches, weight 135 pounds, BMI 21.1. This is a well-developed well-nourished white female who is alert and oriented times 3 in no acute distress. HEENT: Within normal limits. NECK: Supple without mass or thyromegaly. CHEST AND LUNGS: Clear to auscultation. HEART: Regular rate and rhythm. BREASTS: Are without mass or discharge. AXILLARY EXAM: Negative for adenopathy. BACK: Negative for CVA tenderness. ABDOMEN: Soft, nontender, without palpable masses. PELVIC EXAM: Normal external genitalia with mild atrophy. Cervix and vagina appear normal is mild atrophy. There is no unusual discharge. There is no evidence of prolapse. The uterus is midposition, nongravid size and nontender. There are no palpable adnexal masses or tenderness. RECTAL EXAM: Rectovaginal exam is negative for mass or tenderness and is negative for occult blood. EXTREMITIES: Nontender. IMPRESSION: 1. 61-year-old menopausal female with normal gynecologic exam. 2. History of osteopenia PLAN: 1. Pap smear was deferred since she had a negative Pap smear on 02/19/2021. 2. Self breast awareness was discussed with the patient. We have also discussed symptoms associated with inflammatory breast cancer. 3. Screening mammogram will be done today. 4. Osteoporosis prevention was discussed. I have stressed the importance of adequate calcium, vitamin D and regular exercise. Recommended amounts of calcium and vitamin D were also discussed. We will plan on repeating bone density test in 1 year. 5. She has completed her Covid vaccination series and has received 1 booster. She has also had Covid in the past. She understands additional boosters are available. 6. She was advised to return in one year for her annual well woman exam.
--- NOTE | 2022-03-04 18:36 | MM ---
Reason for Exam: Screening (asymptomatic). Last mammogram was performed 1 year(s) and 1 month(s) ago. Patient History: Menarche at age 10. First Full-Term at age 32. Late child-bearing (after 30). Postmenopausal. Patient has history of breast feeding. 2004, Benign Cyst Aspiration on the left side. 2004, Benign Cyst Aspiration on the left side. Maternal aunt had breast cancer, age 60. Risk Values: Mandy 5 year model risk: 2.2%. NCI Lifetime model risk: 9.1%. Prior Study Comparison: 02/13/2020 Bilateral Screening Mammogram, [facility]. 02/24/2021 Bilateral Screening Mammogram, [facility]. 03/21/2021 Right Diagnostic Mammogram, [facility]. Tissue Density: The breast tissue is heterogeneously dense. This may lower the sensitivity of mammography. Findings: Analyzed By CAD. Chronic nodularity medial left breast. There is no suspicious group of microcalcifications or new suspicious mass in either breast. Overall Assessment: Benign, BI-RAD 2 Management: Screening Mammogram of both breasts in 1 year. 1. Patient should continue monthly self breast exams. 2. A clinical breast exam by your physician is recommended on an annual basis. 3. This exam should not preclude additional follow-up of suspicious palpable abnormalities. Electronically signed and approved by: Dunia Hendrix M.D. Radiologist
== END ==
LOC: WWCWWP 14:04
PROVIDERS: ATTEND Obstetrics & Gynecology
DX: Z01.419 Encounter for gynecological examination (general) (routine) without abnormal findings (principal); Z12.31 Encounter for screening mammogram for malignant neoplasm of breast; Z78.0 Asymptomatic menopausal state; Z87.39 Personal history of other diseases of the musculoskeletal system and connective tissue; Z80.7 Family history of other malignant neoplasms of lymphoid, hematopoietic and related tissues
CPT/HCPCS: 77063; 77067

== ENCOUNTER → 2023-03-09 | Outpatient (CLI) | payer BC ==
[2023-03-09 14:41] VITALS: BP 132/82; PULSE 66; RESP 17; TEMP 97.8
--- NOTE | 2023-03-09 14:54 | P.HPOB ---
History of Present Illness H&P Date: 03/09/23 Chief Complaint: The patient is here for her routine gynecologic exam and ma mmogram. This is a 62-year-old 012 with an LMP of 2011. The patient is without gynecologic complaints and denies any postmenopausal bleeding. Review of Systems The patient has gained 3 pounds over the last year. She denies respiratory, cardiac, or G.I. problems. Past Medical History Past Medical History: Mitral Valve Prolapse (MVP) Additional Past Medical History / Comment(s): hx migraines, sm hiatal hernia, osteopenia. 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 History of small fibroids. History of Any Multi-Drug Resistant Organisms: None Reported Past Surgical History: Section Additional Past Surgical History / Comment(s): x2. Colonoscopy at age [age](next after 5yr). Past Anesthesia/Blood Transfusion Reactions: Motion Sickness Past Psychological History: No Psychological Hx Reported Smoking Status: Never smoker Past Alcohol Use History: None Reported Past Drug Use History: None Reported Additional History: She has been since 1980. She works at the [employer] for [employer]. - Past Family History Mother Family Medical History: Cancer Additional Family Medical History / Comment(s): Multiple myeloma. Maternal aunt had breast cancer. Father Family Medical History: Myocardial Infarction ([place]) Medications and Allergies Home Medications Medication Instructions Recorded Confirmed Type Doxycycline [Vibramycin] 20 mg PO DAILY 03/03/22 03/09/23 History Zinc Gluconate [Zinc] 50 mg PO DAILY 03/03/22 03/09/23 History Allergies Allergy/AdvReac Type Severity Reaction Status Date / Time No Known Allergies Allergy Verified 03/09/23 14:06 Exam Vital Signs Temp Pulse Resp BP Pulse Ox 03/09/23 14:11 97.8 F 66 17 132/82 98 Intake and Output 03/08/23 03/09/23 03/09/23 22:59 06:59 14:59 Other: Weight 62.596 kg Height 5 feet 7 inches, weight 138 pounds, BMI 21.6. This is a well-developed well-nourished white female who is alert and oriented times 3 in no acute distress. HEENT: Within normal limits. NECK: Supple without mass or thyromegaly. CHEST AND LUNGS: Clear to auscultation. HEART: Regular rate and rhythm. BREASTS: Are without mass or discharge. AXILLARY EXAM: Negative for adenopathy. BACK: Negative for CVA tenderness. ABDOMEN: Soft, nontender, without palpable masses. PELVIC EXAM: Normal external genitalia with mild to moderate atrophy. Cervix and vagina appear normal with moderate atrophy. There is no unusual discharge. There is no evidence of prolapse. The uterus is midposition, nongravid size and nontender. There are no palpable adnexal masses or tenderness. RECTAL EXAM: rectovaginal exam is negative for mass or tenderness and is negative for occult blood. EXTREMITIES: Nontender. IMPRESSION: 1. 62-year-old menopausal female with normal gynecologic exam. 2. History of osteopenia. PLAN: 1. Pap smear cotest was performed. If this is negative we will plan on discontinuing Pap smears. 2. Self breast awareness was discussed with the patient. We have also discussed symptoms associated with inflammatory breast cancer. 3. Screening mammogram will be done today. 4. Osteoporosis prevention was discussed. I have stressed the importance of adequate calcium, vitamin D and regular exercise. Recommended amounts of calcium and vitamin D were also discussed. Bone density testing will be done today. 5. She was advised to return in one year for her annual well woman exam.
--- NOTE | 2023-03-10 18:01 | MM ---
Reason for Exam: Screening (asymptomatic). Last screening mammogram was performed 12 month(s) ago. Patient History: Menarche at age 10. First Full-Term at age 32. Late child-bearing (after 30). Postmenopausal. Patient has history of breast feeding. 2004, Benign Cyst Aspiration on the left side. 2004, Benign Cyst Aspiration on the left side. Maternal aunt had breast cancer, age 60. Risk Values: Mandy 5 year model risk: 2.2%. NCI Lifetime model risk: 8.9%. Prior Study Comparison: 02/24/2021 Bilateral Screening Mammogram, [facility]. 03/21/2021 Right Diagnostic Mammogram, [facility]. 03/03/2022 Bilateral MG 3D screening mammo w/cad, [facility]. Tissue Density: The breast tissue is heterogeneously dense. This may lower the sensitivity of mammography. Findings: Analyzed By CAD. Pattern appears symmetrical and stable. No significant interval change is evident. Benign calcifications within the right breast. No suspicious groups of microcalcifications, spiculated or lobular masses, architectural distortion or other secondary signs of malignancy are mammographically apparent. Overall Assessment: Benign, BI-RAD 2 Management: Screening Mammogram of both breasts in 1 year. A negative mammogram report should not preclude additional follow up of suspicious palpable abnormalities. Patient should continue monthly self breast exam. A clinical breast exam by your physician is recommended on an annual basis and results should be correlated with mammographic findings. Electronically signed and approved by: Dariel Soares D.O. Radiologis
--- NOTE | 2023-03-10 20:25 | BD ---
EXAMINATION TYPE: Axial Bone Density DATE OF EXAM: 03/09/2023 Height: 66.5" Weight: 136.6lbs FRAX RISK QUESTIONS: Alcohol (3 or more units per day): No Family History (Parent hip fracture): No Glucocorticoids (More than 3mos): No (Ex: prednisone, prednisolone, methylprednisolone, dexamethasone, and hydrocortisone). History of Fracture in Adulthood: No Secondary Osteoporosis: 1. Type 1 Diabetes: No 2. Hyperthyroidism: No 3. Menopause before 45: No 4. Malnutrition: No 5. Chronic liver disease: No Rheumatoid Arthritis: No Current Tobacco Use: No RISK FACTORS HISTORY OF: Hip Fracture (Right/Left): No Spine Fracture: No History of Wrist Fracture: No Surgery to Spine/Hip(right/left)/Wrist (right/left): No Family History of Osteoporosis: Yes, maternal aunt, couple of first cousins Active: Yes Diet low in dairy products/other sources of calcium: No Lost more than 2 inches in height since high school: No Frequent falls: No Poor Health: No Hyperparathyroidism: No Adrenal Insufficiency: No MEDICATIONS: Prednisone or other steroids: No Thyroid Medications: No Osteoporosis Medications: No Additional Medications: Vitamin D, Calcium by taking tums that recommended also with Women's multi vitamin Additional History: N/A EXAM MEASUREMENTS: Bone mineral densitometry was performed using the [email or web address] System. Bone mineral density as measured about the Lumbar spine is: ----- L1-L4(G/cm2): 0.997 T Score Values are as follows: ----- L1: -2.6 ----- L2: -2.1 ----- L3: -1.0 ----- L4: -0.8 ----- L1-L4: -1.5 Z Score Values are as follows: ----- L1: -0.9 ----- L2: -0.5 ----- L3: 0.7 ----- L4: 0.9 ----- L1-L4: 0.1 Bone mineral density has: increased 1.2% since study of: 02/24/2021 Bone mineral density about the R hip (g/cm2): 0.879 Bone mineral density about the L hip (g/cm2): 0.901 T Score values are as follows: -----R Neck: -1.9 -----L Neck: -1.7 -----R Total: -1.0 -----L Total: -0.8 Z Score values are as follows: -----R Neck: -0.4 -----L Neck: -0.2 -----R Total: 0.2 -----L Total: 0.4 Bone mineral density has: increased 5.5% since study of: 02/24/2021 FRAX%s: The graph provided illustrates a 9.5% chance for a major osteoporotic fx and a 1.4% chance fo r the hips probability for fx in 10 years time. IMPRESSION: Osteopenia (T Score between -2.5 and -1). There is slightly increased risk of fracture and the patient may be considered for treatment. Re-Screen 2-5 years. NOTE: T-SCORE=SD OF THE YOUNG ADULT MEAN.
== END ==
LOC: WWCWWP 13:57
PROVIDERS: ATTEND Obstetrics & Gynecology
DX: Z12.31 Encounter for screening mammogram for malignant neoplasm of breast (principal); G43.909 Migraine, unspecified, not intractable, without status migrainosus; M85.80 Other specified disorders of bone density and structure, unspecified site; Z78.0 Asymptomatic menopausal state; Z86.79 Personal history of other diseases of the circulatory system; Z80.3 Family history of malignant neoplasm of breast; Z87.19 Personal history of other diseases of the digestive system
CPT/HCPCS: 77063; 77067; 77080

== ENCOUNTER → 2024-03-15 | Outpatient (CLI) | payer BC ==
--- NOTE | 2024-03-15 15:29 | MM ---
Reason for Exam: Screening (asymptomatic). Last screening mammogram was performed 12 month(s) ago. Patient History: Menarche at age 10. First Full-Term at age 32. Late child-bearing (after 30). Postmenopausal. Patient has history of breast feeding. 2004, Benign Cyst Aspiration on the left side. 2004, Benign Cyst Aspiration on the left side. Maternal aunt had breast cancer, age 60. Risk Values: Mandy 5 year model risk: 2.3%. NCI Lifetime model risk: 8.6%. Prior Study Comparison: 03/21/2021 Right Diagnostic Mammogram, [facility]. 03/03/2022 Bilateral MG 3D screening mammo w/cad, [facility]. 03/09/2023 Bilateral MG 3D screening mammo w/cad, [facility]. Tissue Density: The breasts are heterogeneously dense, which may obscure small masses. Findings: Analyzed By CAD. There is no suspicious group of microcalcifications or new suspicious mass in either breast. Overall Assessment: Negative, BI-RAD 1 Management: Screening Mammogram of both breasts in 1 year. . Patient should continue monthly self-breast exams. A clinical breast exam by your physician is recommended on an annual basis. This exam should not preclude additional follow-up of suspicious palpable abnormalities. Note on Mandy scores and lifetime risk: 1. A Mandy score greater than 3% is considered moderate risk. If this is the case, consider specialist referral to assess eligibility for a risk reducing agent. 2. If overall lifetime risk for the development of breast cancer is 20% or higher, the patient may qualify for future screening with alternating mammogram and breast MRI. [facility], , 03/15/2024 3:26 PM. Electronically signed and approved by: Hermilo Dillon M.D.
== END | disposition home or self-care (01) ==
LOC: RADMAMWWP 10:45
PROVIDERS: ATTEND Family Medicine
DX: Z12.31 Encounter for screening mammogram for malignant neoplasm of breast (principal); Z78.0 Asymptomatic menopausal state; Z80.3 Family history of malignant neoplasm of breast; R92.333 Mammographic heterogeneous density, bilateral breasts
CPT/HCPCS: 77063; 77067

== ENCOUNTER → 2024-05-02 | Outpatient (CLI) | payer MEDICARE ==
--- NOTE | 2024-05-02 14:12 | US ---
EXAMINATION TYPE: US pelvis complete transvag DATE OF EXAM: 05/02/2024 COMPARISON: US 2014 CLINICAL INDICATION: Female, 63 years old with history of R14.0 ABDOMINAL DISTENSION (GASEOUS); Pt st ates bloating TECHNIQUE: Transvaginal (TV) and Transabdominal (TA) . Transabdominal grayscale sonographic images of the pelvis were acquired. Transvaginal sonographic im ages were medically necessary to better assess the following anatomy: TV ordered by physician Doppler imaging: Not performed. FINDINGS: Date of LMP: 2011 EXAM MEASUREMENTS: Uterus: 8.1 x 2.5 x 4.4 cm Endometrial Stripe: 0.3 cm Right Ovary: 2.1 x 1.1 x 1.7 cm Left Ovary: 2.0 x 1.2 x 1.5 cm 1. Uterus: Anteverted Possible small, hypoechoic lesion left uterine body= 0.8 x 0.7 x 1.1 cm 2. Endometrium: wnl 3. Right Ovary: wnl 4. Left Ovary: wnl 5. Bilateral Adnexa: wnl 6. Posterior cul-de-sac: wnl Anteverted uterus with a hypoechoic 1.1 similar lesion within the left uterine body most consistent w ith intramural fibroid. Endometrium is within normal limits. Both ovaries appear unremarkable. No bina e fluid. IMPRESSION: 1. No ultrasound evidence for acute process. 2. Uterine fibroid measured 1.1 cm. [facility], , 05/02/2024 2:10 PM
--- NOTE | 2024-05-02 17:39 | P.PN ---
Progress Note - Text Progress Note Date: 05/02/24 OUTPATIENT FOLLOW-UP NOTE TEST(S)/RESULTS: Pelvic ultrasound done on 05/02/2024 shows a small uterine fibroid measuring 1.1 cm. The ovaries are within normal limits. METHOD OF NOTIFICATION: A message with this result was left on the patient's voicemail on 05/02/2024. PATIENT COMMENTS: DIAGNOSIS: Small stable uterine fibroid. Normal ovaries. DISCUSSION: I do not see any evidence of a gynecologic cause for the abdominal bloating which she has experienced. If it is a persistent issue, she is to discuss this with her PCP for possible further testing. PLAN: As above.
== END | disposition home or self-care (01) ==
LOC: RADUSWWP 13:32
PROVIDERS: ATTEND Obstetrics & Gynecology
DX: D25.9 Leiomyoma of uterus, unspecified (principal)
CPT/HCPCS: 76830; 76856